=== PATIENT | male | born 2000 | race Caucasian/White ===

== ENCOUNTER 2022-11-29 10:49 | Emergency (ER) | payer BC ==
[~2022-11-29] VITALS: Ht 180.3 cm; Wt 116.1 kg
[~2022-11-29 10:49] MED LIST: ERGO400 PO
[2022-11-29 11:09] VITALS: BP 140/70
[2022-11-29] MEDS ORDERED: HYDR1TAB94 PO (12:24)
== END 2022-11-29 13:03 | disposition home or self-care (01) ==
LOC: ER 10:49
DX: S81.811A Laceration without foreign body, right lower leg, initial encounter (principal); W27.0XXA Contact with workbench tool, initial encounter
CPT/HCPCS: 12002; 73590; 99283-25